=== PATIENT | female | born 1995 ===

== ENCOUNTER → 2021-07-06 11:26 | Outpatient (CLI) | payer OTHER, SELFPAY ==
[2021-07-06 14:29] LABS: COVID19 -Nasal RAPID Negative (Negative)
== END ==
PROVIDERS: Visit Provider Nurse Practitioner Family
DX: Z20.822 Contact with and (suspected) exposure to COVID-19 (principal); Z01.812 Encounter for preprocedural laboratory examination
CPT/HCPCS: 87635